=== PATIENT | female | born 1970 | race Caucasian/White ===

== ENCOUNTER → 2016-09-29 | Outpatient (CLI) | payer BC ==
[~2016-09-29] MED LIST: APAP500; HTN MED; IBUPROFEN 200200 M1; MEDROLDOSEPACK PO; TIZANIDINE HCL4 MG PO; [UNRECOGNIZED DRUG - OTHER]
== END ==
LOC: RAD 10:24
DX: M54.5 Low back pain (principal)

== ENCOUNTER → 2016-12-27 | Outpatient (CLI) | payer BC | LOC: RAD 13:17 | DX: Z12.31 Encounter for screening mammogram for malignant neoplasm of breast (principal) ==

== ENCOUNTER → 2018-01-11 | Outpatient (CLI) | payer BC | LOC: RAD 01:33 | DX: Z12.31 Encounter for screening mammogram for malignant neoplasm of breast (principal) ==

== ENCOUNTER → 2019-06-11 | Outpatient (CLI) | payer BC | LOC: RAD 11:23 | DX: R05 Cough (principal) ==

== ENCOUNTER → 2019-12-29 | Outpatient (CLI) | payer BC | LOC: RAD 13:38 | PROVIDERS: ATTEND Internal Medicine Geriatric Medicine | DX: Z12.31 Encounter for screening mammogram for malignant neoplasm of breast (principal) ==

== ENCOUNTER → 2021-04-13 | Outpatient (CLI) | payer BC | LOC: BC 10:07 | PROVIDERS: ATTEND Internal Medicine | DX: Z12.31 Encounter for screening mammogram for malignant neoplasm of breast (principal) ==